=== PATIENT | female | born 1950 | race Caucasian/White ===

== ENCOUNTER → 2023-10-24 12:47 | Outpatient (REF) | payer MEDICARE, OTHER, SELFPAY | LOC: HWEVLT 12:47 | PROVIDERS: ATTENDING PHYSICIAN Radiology Diagnostic Radiology | DX: I83.893 Varicose veins of bilateral lower extremities with other complications (principal) | CPT/HCPCS: 93970 ==

== ENCOUNTER → 2024-01-16 08:40 | Outpatient (REF) | payer MEDICARE, OTHER, SELFPAY | LOC: WDC 08:40 | PROVIDERS: ATTENDING PHYSICIAN Nurse Practitioner Family; FAMILY PHYSICIAN Physician Assistant Medical | DX: Z12.31 Encounter for screening mammogram for malignant neoplasm of breast (principal) | CPT/HCPCS: 77063; 77067 ==

== ENCOUNTER → 2024-04-03 07:50 | Outpatient (REF) | payer MEDICARE, OTHER, SELFPAY | LOC: HWEVLT 07:50 | PROVIDERS: ATTENDING PHYSICIAN Radiology Diagnostic Radiology | DX: I83.892 Varicose veins of left lower extremity with other complications (principal) | CPT/HCPCS: 36478; C1769 ==

== ENCOUNTER → 2024-04-24 13:25 | Outpatient (REF) | payer MEDICARE, OTHER, SELFPAY | LOC: HWEVLT 13:25 | PROVIDERS: ATTENDING PHYSICIAN Radiology Vascular & Interventional Radiology | DX: I83.892 Varicose veins of left lower extremity with other complications (principal) | CPT/HCPCS: 93971 ==

== ENCOUNTER → 2024-05-16 08:02 | Outpatient (REF) | payer MEDICARE, OTHER, SELFPAY | LOC: HWEVLT 08:02 | PROVIDERS: ATTENDING PHYSICIAN Radiology Diagnostic Radiology | DX: I83.891 Varicose veins of right lower extremity with other complications (principal) | CPT/HCPCS: 36478; C1769 ==

== ENCOUNTER → 2024-06-04 11:34 | Outpatient (REF) | payer MEDICARE, OTHER, SELFPAY | LOC: HWEVLT 11:34 | PROVIDERS: ATTENDING PHYSICIAN Radiology Diagnostic Radiology | DX: I83.893 Varicose veins of bilateral lower extremities with other complications (principal) | CPT/HCPCS: 93970 ==

== ENCOUNTER → 2025-01-20 11:18 | Outpatient (REF) | payer MEDICARE, OTHER, SELFPAY | LOC: WDC 11:18 | PROVIDERS: ATTENDING PHYSICIAN Nurse Practitioner Family; FAMILY PHYSICIAN Physician Assistant Medical | DX: Z12.31 Encounter for screening mammogram for malignant neoplasm of breast (principal) | CPT/HCPCS: 77063; 77067 ==